=== PATIENT | male | born 1950 | race Caucasian/White ===

== ENCOUNTER 2019-01-25 07:43 | Day surgery (SDC) | payer MEDICARE, BC ==
[~2019-01-25 07:43] MED LIST: ACETAMINOPHEN 1,000 MG/100 ML BTL IV ONE; CLINDAMYCIN 600MG/50ML PREMIX 600 MG/50 ML BAG IVPB ONE
[2019-01-25] MEDS ORDERED: ROPIVACAINE HCL (NAROPIN) /PF 5MG/ML 20ML VIAL IV ONE (07:44)
[2019-01-25] MEDS ORDERED: KETOROLAC 30 MG/ML VIAL IVP ONE (07:44)
[2019-01-25] MEDS ORDERED: ONDANSETRON HCL IV 4 MG/2 ML VIAL IVP ONE (07:44)
[2019-01-25] MEDS ORDERED: SUFENTANIL CITRATE 50 MCG/ML AMPUL IV ONE (07:44)
[2019-01-25] MEDS ORDERED: PROPOFOL 10 MG/ML VIAL IV ONE (07:44)
[2019-01-25] MEDS ORDERED: BUPIVACAINE 0.5% W/EPI MPF 30 ML VIAL IVP ONE (07:44)
[2019-01-25] MEDS ORDERED: LIDOCAINE 2% MDV (20MG/ML) 20ML VIAL IV ONE (07:44)
[2019-01-25] MEDS ORDERED: BUPIVACAINE LIPOSOME 266MG/20ML VIAL IV ONE (07:44)
[2019-01-25] MEDS ORDERED: DESFLURANE 240 ML BTL INH ONE (07:44)
[2019-01-25] MEDS ORDERED: DEXAMETHASONE 4 MG/ML 1ML VIAL IVP ONE (07:44)
[2019-01-25 07:58] LABS: BASO % 0.3 % (0-6); GRAN % 72.2 % (47-80); HEMATOCRIT 42.4 % (42.0-52.0); HEMOGLOBIN 13.4 gm/dl (14.0-18.0); LYMPH % 17.3 % (16-45); MEAN CELL VOLUME 88.1 fl (81-97); MEAN CORPUSCULAR HGB CONC 31.6 g/dl (32-36); MEAN PLATELET VOLUME 8.8 fl (7.4-10.4); MONO % 8.2 % (0-9); PLATELET COUNT 642 K/uL (130-400); RED BLOOD COUNT 4.81 M/uL (4.40-5.70); RED CELL DISTRIBUTION WIDTH 16.5 % (11.5-14.5); WHITE BLOOD COUNT W/O DIFF 11.5 K/uL (4.2-12.2)
[2019-01-25 07:59] LABS: MEAN CORPUSCULAR HEMOGLOBIN 27.8 pg (27-33)
[2019-01-25 08:10] LABS: CREATININE 2.1 mg/dL (0.7-1.2)
--- NOTE | 2019-01-27 18:07 | Operative Note ---
DATE OF SURGERY: 01/25/2019 PREOPERATIVE DIAGNOSES: DISPLACED LEFT PATELLAR FRACTURE. POSTOPERATIVE DIAGNOSES: DISPLACED LEFT PATELLAR FRACTURE. PROCEDURE: OPEN REDUCTION/INTERNAL FIXATION. SURGEON: LUCIA PICKETT M.D. ANESTHESIA: GENERAL, ORA FLORES CRNA. COMPLICATIONS: NONE. BLOOD LOSS: MINIMAL. OPERATIVE FINDINGS: Displaced patellar fracture component. Placed two 4 mm stainless steel [employer] partially threaded cannulated screws with 18- gauge tension band wiring. INDICATIONS FOR OPERATION: This is a 68-year-old large male who is 6'8", 280- 300 lb, who fell recently sustaining a displaced patellar fracture and is scheduled for ORIF. I explained the risks and benefits thoroughly in detail for diagnosis and procedures including but not limited to infection, nerve injury, vessel injury, persistent pain, stiffness, numbness and tingling in his knee, nonunion, malunion, hardware failure, blood clot, need for further procedures, and all of his questions were answered. The rehab and course were outlined and he agreed to proceed. PROCEDURE: The patient was brought to the O.R. and placed in the supine position for surgery. General endotracheal anesthesia induced. The left lower extremity and knee were prepped and draped in sterile fashion. The left knee was prepped again with ChloraPrep after it was draped. Intraoperative time-out was performed. Next, we marked an anterior midline incision. Infiltrated with 0.5% Marcaine with Epinephrine. Skin and subcutaneous tissues were dissected down to the patella. The patella fascia was still intact. It was opened up laterally and it buckled with apex anterior. I brought in two point reduction forceps and C-arm in the lateral position and reduced the fracture in anatomic position. Made two slits in the quadriceps tendon at the upper edge of the patella. Inserted two parallel wires for the cannulated screws, measured off those wires and left the screw short from the distal cortex about 5 mm. Inserted the two screws until their appropriate depth. Next, we placed an 18-gauge wire in and out the distal screw after making the slit in the patellar tendon as well distally and brought the wire across and out the back end proximal to distal and again then proximal in the other screw then brought it across in a crisscross [id number] fashion. We then began to tension those wires down sequentially with large needle drivers until we had good tension on the wire. We then cut the wires, left them long, bent the tips, and then tamped them back on to the bone of the patella. We took the final images. AP and lateral showed the anatomic reduction and all screw and wire lengths were good. We irrigated the wound copiously. We closed with 2-0 Vicryl and kacey. We injected the wound with 0.5% Marcaine with Epinephrine, tranexamic acid. He received Toradol IV. Sterile dressing applied and back in the knee immobilizer. The patient tolerated the procedure well. No intraoperative complications. Sponge, needle, and blade counts correct. Recovery room stable and neurovascularly intact. He will be discharged as an outpatient with partial weightbearing, knee immobilizer on all the time, and follow-up in two weeks. cc: Dr. Kaye Singh JOB NUMBER: [id number] MTDD
== END 2019-01-25 12:25 | disposition home or self-care (01) ==
LOC: SUR 07:43
PROVIDERS: ATTEND Orthopaedic Surgery
DX: S82.002A Unspecified fracture of left patella, initial encounter for closed fracture (principal); E11.9 Type 2 diabetes mellitus without complications; G47.33 Obstructive sleep apnea (adult) (pediatric); F17.210 Nicotine dependence, cigarettes, uncomplicated
CPT/HCPCS: 27524; 01392; 64447; 85025; 80048; 76000; 93005; 76942; J1885; J2405; C9290; J2795